=== PATIENT | male | born 1965 | race Two or more races ===

== ENCOUNTER → 2024-07-10 | Outpatient (CLI) | payer BC, SELFPAY ==
--- NOTE | 2024-07-10 08:00 | XR_ITS ---
Examination: MRI lumbar spine without contrast Date and time of exam: July 10, 2024 0917 hours INDICATIONS: Low back pain 3 years radiating down the legs TECHNIQUE: Multiple MR axial sagittal lumbar spine images FINDINGS: Grade 1 anterolisthesis L4 on L5 No lumbar fracture Diffuse lumbar disc desiccation Moderate lumbar spondylosis Moderate to advanced disc narrowing L5-S1 Adequate marrow signal lumbar vertebral bodies L5-S1 4.5 mm central lumbar disc bulge, 6 mm left foraminal disc bulge producing mild left L5 ganglionic compression L4-L5 5 mm central lumbar disc bulge and bilateral foraminal disc bulges but no ganglionic compression L3-L4 small foraminal disc bulges 3 mm range L2-L3 no disc protrusion L1-L2 no disc protrusion Impression: Grade 1 anterolisthesis L4 on L5 L5-S1 4.5 mm central lumbar disc bulge 6 mm left foraminal disc bulge producing mild left L5 ganglionic compression L4-L5 5 mm central lumbar disc bulge
== END | disposition home or self-care (01) ==
PROVIDERS: PCP Family Medicine; Referring Provider Nurse Practitioner Family; Visit Provider Nurse Practitioner Family
DX: M51.369 Other intervertebral disc degeneration, lumbar region without mention of lumbar back pain or lower extremity pain (principal); M51.379 Other intervertebral disc degeneration, lumbosacral region without mention of lumbar back pain or lower extremity pain; G95.20 Unspecified cord compression
CPT/HCPCS: 72148

== ENCOUNTER → 2024-10-27 | Outpatient (CLI) | payer MEDICAID, SELFPAY ==
--- NOTE | 2024-10-27 16:46 | XR_ITS ---
Examination: Lumbar spine, 5 views Technique: Lumbar spine AP, lateral, coned lateral lower lumbar spine, bilateral obliques 5 views Exam date and time: October 27, 2024, 1647 hours INDICATION: Low back pain beginning 7 years ago FINDINGS: Grade 1 anterolisthesis L4 on L5 No lumbar fracture Mild to moderate diffuse lumbar degenerative disc disease Prominent lumbar spondylosis Prominent facet arthropathy IMPRESSION: Mild to moderate diffuse lumbar degenerative disc disease with spinal stenosis
== END | disposition home or self-care (01) ==
PROVIDERS: PCP Family Medicine; Referring Provider Physician Assistant; Visit Provider Physician Assistant
DX: M51.360 Other intervertebral disc degeneration, lumbar region with discogenic back pain only (principal); M48.061 Spinal stenosis, lumbar region without neurogenic claudication
CPT/HCPCS: 72110